=== PATIENT | female | born 1955 ===

== ENCOUNTER 2017-02-07 09:34 | Inpatient (IN) | payer BC ==
[2017-02-07 09:37] VITALS: BMI 32.1
[2017-02-07] MEDS ORDERED: Albuterol-Ipratrop 3 mg / 0.5 (3 ml) UD ONE ×2 (09:43→10:28)
[2017-02-07] MEDS ORDERED: Sodium Chloride 0.9% 500 ML IV ONE (10:09)
--- NOTE | 2017-02-07 10:17 | C.PDOC ---
History Of Present Illness 61 y/o female, past medical history of asthma, presents to emergency department with complaints of cough, chest tightness, and shortness of breath. Patient states she has never been admitted for asthma. She reports using her nebulizer at home w/o relief. Patient also notes she is a regular smoker but has not smoked for 1 week because she has not been feeling well. Otherwise, denies fever , chills, nausea, vomiting, headache, neck pain. Time Seen by Provider: 02/07/17 09:59 Chief Complaint (Nursing): Shortness Of Breath History Per: Patient History/Exam Limitations: no limitations Onset/Duration Of Symptoms: Days Current Symptoms Are (Timing): Still Present Current Respiratory Medications: See Home Med List Associated Symptoms: denies: Fever, Chills, Chest Pain, Dizziness, Anxiety Recent travel outside of the [place]: No Past Medical History Reviewed: Historical Data, Nursing Documentation, Vital Signs Vital Signs: Last Vital Signs Temp 99.7 F H 02/07/17 09:37 Pulse 83 02/07/17 09:37 Resp 20 02/07/17 09:50 BP 134/86 02/07/17 09:37 Pulse Ox 97 02/07/17 10:39 - Medical History PMH: Arthritis (right hip/back), Asthma, CAD, Depression, Emphysema, Fractures ( toes fx 2015), HTN, Hypercholesterolemia, Pneumonia Surgical History: Coronary Stent (x4) Family History: States: Unknown Family Hx - Social History Hx Alcohol Use: No Hx Substance Use: No (alcohol abuse) - Immunization History Hx Influenza Vaccination: Yes Review Of Systems Except As Marked, All Systems Reviewed And Found Negative. Constitutional: Negative for: Fever, Chills Cardiovascular: Negative for: Chest Pain Respiratory: Positive for: Cough, Shortness of Breath, Wheezing Gastrointestinal: Negative for: Nausea, Vomiting, Abdominal Pain Skin: Negative for: Rash Neurological: Negative for: Headache, Dizziness Physical Exam - Physical Exam Appears: Non-toxic, No Acute Distress Skin: Warm, Dry, No Rash Head: Atraumatic, Normacephalic Eye(s): bilateral: Normal Inspection, PERRL, EOMI Oral Mucosa: Moist Chest: Symmetrical Cardiovascular: Rhythm Regular Respiratory: No Accessory Muscle Use, Rhonchi, Wheezing (minimal) Gastrointestinal/Abdominal: Soft, No Tenderness, No Guarding, No Rebound, Other (obese) Back: Normal Inspection Extremity: Normal ROM, Capillary Refill (< 2 sec.) Neurological/Psych: Oriented x3, Normal Speech, Normal Cognition ED Course And Treatment - Laboratory Results Result Diagrams: 02/07/17 10:42 02/07/17 10:42 ECG: Interpreted By Me, Viewed By Me ECG Rhythm: Sinus Rhythm ECG Interpretation: Normal Interpretation Of ECG: No ST/T wave changes. Rate From EC (BPM) O2 Sat by Pulse Oximetry: 97 (RA) Pulse Ox Interpretation: Normal - Radiology CXR: Interpreted by Me CXR Interpretation: Yes: No Acute Disease. No: Infiltrates Medical Decision Making Medical Decision Making: Plan: * Duonebs * Solumedrol * Reeval Progress Notes: Patient with persistent SOB, dropped O2 Sats to 90%. Spoke with Dr. Farrell, will hospitalize for further evaluation. Disposition Discussed With : Viktor Farrell Doctor Will See Patient In The: Hospital Counseled Patient/Family Regarding: Studies Performed, Diagnosis - Disposition Disposition: HOSPITALIZED Disposition Time: 13:50 Condition: GUARDED Forms: [employer] (Faroese) - POA Present On Arrival: None - Clinical Impression Clinical Impression: Dyspnea, Reactive airway disease - Scribe Statement The provider has reviewed the documentation as recorded by the Scribe Kleber Saldaña All medical record entries made by the Scribe were at my direction and personally dictated by me. I have reviewed the chart and agree that the record accurately reflects my personal performance of the history, physical exam, medical decision making, and the department course for this patient. I have also personally directed, reviewed, and agree with the discharge instructions and disposition. Decision To Admit - Pt Status Changed To: Hospital Disposition Of: Observation - . Bed Request Type: Telemetry Patient Diagnosis: Dyspnea, Reactive airway disease
--- NOTE | 2017-02-07 10:29 | RAD ---
HISTORY: SOB COMPARISON: None available. TECHNIQUE: Chest PA and lateral FINDINGS: Examination limited by habitus. LUNGS: No focal consolidation. Please note that chest x-ray has limited sensitivity for the detection of pulmonary masses. PLEURA: No significant pleural effusion identified. No definite pneumothorax . CARDIOVASCULAR: Heart size appears within normal limits. Atherosclerotic calcifications of the aorta. OSSEOUS STRUCTURES: Osseous demineralization. Degenerative changes. Kyphosis. VISUALIZED UPPER ABDOMEN: Unremarkable. OTHER FINDINGS: None. IMPRESSION: No focal consolidation, significant pleural effusion, or definite pneumothorax identified.
[2017-02-07] MEDS: Albuterol-Ipratrop 3 mg / 0.5 (3 ml) UD IH SCH ×2 (10:30→10:45)
[2017-02-07 10:45] LABS: BASO % 0.4 % (0.0-2.0); EOS # 0.1 K/uL (0.0-0.7); EOS % 1.1 % (0.0-4.0); HEMATOCRIT 35.2 % (34.0-47.0); LYMPH # 1.8 K/uL (1.0-4.3); LYMPH % 31.8 % (20.0-40.0); MEAN CORPUSCULAR HEMOGLOBIN 31.2 pg (27.0-31.0); MEAN CORPUSCULAR HGB CONC 33.9 g/dL (33.0-37.0); MEAN PLATELET VOLUME 9.1 fL (7.2-11.7); MONO # 0.4 K/uL (0.0-0.8); MONO % 8.1 % (0.0-10.0); NRBC % 0.1 % (0.0-2.0); RED CELL DISTRIBUTION WIDTH 14.1 % (11.5-14.5); WHITE BLOOD COUNT 5.5 K/uL (4.8-10.8)
[2017-02-07 10:53] LABS: CHLORIDE 100 mmol/L (98-107); SODIUM 139 mmol/L (132-148)
[2017-02-07 10:56] LABS: ALKALINE PHOSPHATASE 94 U/L (38-126); ALT/SGPT 32 U/L (9-52); AST/SGOT 31 U/L (14-36); BILIRUBIN,TOTAL 0.6 mg/dL (0.2-1.3); BLOOD UREA NITROGEN 12 mg/dL (7-17); CARBON DIOXIDE 24 mmol/L (22-30); GFR AFRICAN-AMERICAN > 60; GLUCOSE,RANDOM 115 mg/dL (65-105); TOTAL PROTEIN 7.4 g/dL (6.3-8.3)
[2017-02-07] MEDS: Azithromycin 500mg/250ML NS 500 MG/250 ML BAG IVPB SCH (18:51)
[2017-02-07] MEDS: Fluticasone-Salmeterol 250-50mcg Diskus INH SCH (19:39)
[2017-02-07] MEDS: Albuterol-Ipratrop 3 mg / 0.5 (3 ml) UD INH SCH (19:40)
[2017-02-07] MEDS: (Novolog) Insulin Aspart, Recombinant 100 u/ml 10 ml vial SC SCH (22:15)
[2017-02-07] MEDS: MethylPREDNISolone 40 mg Vial IVP SCH (22:15)
[2017-02-07] MEDS: (Lantus) Insulin Glargine, Recombinant SC SCH (22:16)
--- NOTE | 2017-02-07 22:20 | CP.PCM.HP ---
History of Present Illness - History of Present Illness History of Present Illness: CC: cough congestion, shortness of breath x 1 week HPI: 61 y/o female, past medical history significant of asthma, DM, HTN, Hyperlipidemia, presents to emergency department with complaints of cough, chest tightness, and shortness of breath since 1 week which did not improve on home therapy. Patient states she has never been admitted for asthma. She reports using her nebulizer at home w/o relief. Patient also notes she is a regular smoker but has not smoked for 1 week because she has not been feeling well. Otherwise, denies fever, chills, nausea, vomiting, headache, neck pain. She has cough associated with white sputum, body aches, anorexia, fatigue. She denies polyuria, polyphagia, polydipsia, she denies hematuria, pyuria. Review of Systems - Review of Systems Systems not reviewed;Unavailable: Acuity of Condition, Respiratory Distress - Constitutional Constitutional: Anorexia, Fatigue, Lethargy, Malaise. absent: As Per HPI, Chills, Daytime Sleepiness, Excessive Sweating, Fever, Frequent Falls, Headache , Increased Appetite, Night Sweats, Snoring, Sleep Apnea, Weight Gain, Weight Loss, Weakness, Other - EENT Eyes: absent: As Per HPI, Blind Spots, Blurred Vision, Change in Vision, Decreased Night Vision, Diplopia, Discharge, Dry Eye, Exophthalmos, Floaters, Irritation, Itchy Eyes, Loss of Peripheral Vision, Pain, Photophobia, Requires Corrective Lenses, Sees Flashes, Spots in Vision, Tunnel Vision, Other Visual Disturbances, Loss of Vision, Other Ears: absent: As Per HPI, Decreased Hearing, Ear Discharge, Ear Pain, Tinnitus, Abnormal Hearing, Disequilibrium, Dizziness, Other Nose/Mouth/Throat: absent: As Per HPI, Epistaxis, Nasal Congestion, Nasal Discharge, Nasal Obstruction, Nasal Trauma, Nose Pain, Post Nasal Drip, Sinus Pain, Sinus Pressure, Bleeding Gums, Change in Voice, Dental Pain, Dry Mouth, Dysphagia, Halitosis, Hoarsness, Lip Swelling, Mouth Lesions, Mouth Pain, Odynophagia, Sore Throat, Throat Swelling, Tongue Swelling, Facial Pain, Neck Pain, Neck Mass, Other - Cardiovascular Cardiovascular: Dyspnea - Respiratory Respiratory: Cough, Dyspnea, Wheezing, Excessive Mucous Production - Gastrointestinal Gastrointestinal: absent: As Per HPI, Abdominal Pain, Belching, Bloating, Change in Bowel Habits, Change in Stool Character, Coffee Ground Emesis, Constipation, Cramping, Diarrhea, Dyspepsia, Dysphagia, Early Satiety, Excessive Flatus, Fecal Incontinence, Heartburn, Hematemesis, Hematochezia, Loose Stools, Melena, Nausea, Odynophagia, Temesmus, Vomiting, Other - Genitourinary Genitourinary: absent: As Per HPI, Change in Urinary Stream, Difficulty Urinating, Dysuria, Flank Pain, Hematuria, Pyuria, Nocturia, Urinary Incontinence, Urinary Frequency, Urinary Hesitance, Urinary Urgency, Voiding Freq/Small Amts, Freq UTI, Hx Renal/Bladder Calculi, Hx /Renal Surgery, Bladder Distension, Other - Reproductive: Female Reproductive:Female: absent: As Per HPI, Amenorrhea, Amenorrhea/ Control, Currently Menstual, Cycle <21 Days, Cycle >35 Days, Cycle Variable, Menses 1-7 Days, Menses >/= 8 Days, Menses Variable, Cycle > 4 Weeks Between, No Menses for 6 Months, Heavy Menses, Light Menses, Normal Menses, Spotting Between Cycles , S/P Hysterectomy, Menopausal, Post Menopausal, Premenarche, Abnormal Vaginal Bleeding, Dysmenorrhea, Dyspareunia, Genital Lesions, Genital Pruritis, Pelvic Pain, Prolapse Symptoms, Sexual Dysfunction, Vaginal Discharge, Vaginal Dryness , Vaginal Odor, Vaginal Pruritis, Other Past Patient History - Infectious Disease Hx of Infectious Diseases: None - Tetanus Immunizations Tetanus Immunization: Unknown - Past Social History Smoking Status: Former Smoker - CARDIAC Hx Hypercholesterolemia: Yes Hx Hypertension: Yes - PULMONARY Hx Asthma: Yes Hx Emphysema: Yes Hx Pneumonia: No Hx Sleep Apnea: Yes (BiPaP at home) - NEUROLOGICAL Hx Alzheimer's Disease: No Hx Dementia: No Hx Migraine: No Hx Multiple Sclerosis: No Hx Parkinson's Disease: No Hx Seizures: No Hx Transient Ischemic Attacks (TIA): No - HEENT Hx HEENT Problems: No - RENAL Hx Chronic Kidney Disease: No Hx Kidney Stones: No - ENDOCRINE/METABOLIC Hx Diabetes Mellitus Type 2: Yes Hx Hyperthyroidism: No Hx Hypothyroidism: No - HEMATOLOGICAL/ONCOLOGICAL Hx Anemia: No Hx Human Immunodeficiency Virus (HIV): No Hx Sickle Cell Disease: No - INTEGUMENTARY Hx Dermatological Problems: No - MUSCULOSKELETAL/RHEUMATOLOGICAL Hx Arthritis: Yes (right hip/back) Hx Falls: Yes Hx Fractures: Yes (toes fx 2015) Hx Unsteady Gait: Yes - GASTROINTESTINAL Hx Crohn's Disease: No Hx Diarrhea: Yes Hx Diverticulitis: No Hx Gall Bladder Disease: No Hx Gastritis: No Hx Pancreatitis: No - GENITOURINARY/GYNECOLOGICAL Hx Sexually Transmitted Disorders: No - PSYCHIATRIC Hx Depression: Yes Hx Substance Use: No (alcohol abuse) - SURGICAL HISTORY Hx Coronary Stent: Yes (x4) - ANESTHESIA Hx Anesthesia: Yes Hx Anesthesia Reactions: No Hx Malignant Hyperthermia: No Meds Allergies/Adverse Reactions: Allergies Allergy/AdvReac Type Severity Reaction Status Date / Time codeine Allergy VOMITING Verified 02/07/17 09:37 Physical Exam - Constitutional Appears: No Acute Distress - Head Exam Head Exam: ATRAUMATIC, NORMAL INSPECTION, NORMOCEPHALIC - Eye Exam Eye Exam: EOMI, Normal appearance, PERRL Pupil Exam: NORMAL ACCOMODATION, PERRL - Respiratory Exam Respiratory Exam: Decreased Breath Sounds, Rales, Rhonchi - Cardiovascular Exam Cardiovascular Exam: REGULAR RHYTHM, +S1, +S2 - GI/Abdominal Exam GI & Abdominal Exam: Normal Bowel Sounds, Soft. absent: Tenderness - Back Exam Back exam: NORMAL INSPECTION - Neurological Exam Neurological exam: Alert, CN II-XII Intact, Normal Gait, Oriented x3, Reflexes Normal Results - Vital Signs Recent Vital Signs: Last Vital Signs Temp 98.3 F 02/07/17 16:15 Pulse 72 02/07/17 20:27 Resp 20 02/07/17 16:15 BP 127/79 02/07/17 18:52 Pulse Ox 93 L 02/07/17 16:15 - Labs Result Diagrams: 02/07/17 10:42 02/07/17 10:42 Labs: Laboratory Results - last 24 hr 02/07/17 02/07/17 02/07/17 10:07 10:09 10:42 WBC 5.5 RBC 3.83 Hgb 11.9 Hct 35.2 MCV 92.0 MCH 31.2 H MCHC 33.9 RDW 14.1 Plt Count 174 MPV 9.1 Neut % (Auto) 58.6 Lymph % (Auto) 31.8 [place] % (Auto) 8.1 Eos % (Auto) 1.1 Baso % (Auto) 0.4 Neut # 3.2 Lymph # 1.8 [place] # 0.4 Eos # 0.1 Baso # 0.0 Sodium Potassium Chloride Carbon Dioxide Anion Gap BUN Creatinine Est GFR ( Amer) Est GFR (Non-Af Amer) POC Glucose (mg/dL) 123 H Random Glucose Calcium Total Bilirubin AST ALT Alkaline Phosphatase Troponin I NT-Pro-B Natriuret Pep Total Protein Albumin Globulin Albumin/Globulin Ratio Influenza Typ A,B (EIA) Negative for flu a/b 02/07/17 02/07/17 02/07/17 10:42 12:54 16:40 WBC RBC Hgb Hct MCV MCH MCHC RDW Plt Count MPV Neut % (Auto) Lymph % (Auto) [place] % (Auto) Eos % (Auto) Baso % (Auto) Neut # Lymph # [place] # Eos # Baso # Sodium 139 Potassium 4.0 Chloride 100 Carbon Dioxide 24 Anion Gap 20 BUN 12 Creatinine 0.5 L Est GFR ( Amer) > 60 Est GFR (Non-Af Amer) > 60 POC Glucose (mg/dL) 152 H 343 H Random Glucose 115 H Calcium 8.0 L Total Bilirubin 0.6 AST 31 ALT 32 Alkaline Phosphatase 94 Troponin I < 0.0120 NT-Pro-B Natriuret Pep 67.6 Total Protein 7.4 Albumin 3.8 Globulin 3.6 Albumin/Globulin Ratio 1.0 Influenza Typ A,B (EIA) Assessment & Plan (1) Dyspnea Status: Acute (2) Asthma Status: Acute (3) CAD (coronary artery disease) Status: Acute (4) DM2 (diabetes mellitus, type 2) Status: Acute (5) HTN (hypertension) Status: Acute
[2017-02-08] MEDS: Albuterol-Ipratrop 3 mg / 0.5 (3 ml) UD INH SCH ×4 (01:50→19:53)
[2017-02-08] MEDS: MethylPREDNISolone 40 mg Vial IVP SCH ×3 (05:24→21:52)
[2017-02-08] MEDS: (Novolog) Insulin Aspart, Recombinant 100 u/ml 10 ml vial SC SCH ×4 (08:31→21:52)
[2017-02-08] MEDS: buPROPion 150 mg/24 Hours XL Tab PO SCH (09:25)
[2017-02-08] MEDS: Enoxaparin 40 mg Syringe SC SCH (09:25)
[2017-02-08] MEDS ORDERED: Influenza Vaccine 60 mcg/0.5 mL SYR (4YR UP) IM ONE (10:00)
[2017-02-08] MEDS: Fluticasone-Salmeterol 250-50mcg Diskus INH SCH ×2 (11:15→19:53)
[2017-02-08] MEDS: Azithromycin 500mg/250ML NS 500 MG/250 ML BAG IVPB SCH (19:07)
[2017-02-08] MEDS: (Lantus) Insulin Glargine, Recombinant SC SCH (21:52)
--- NOTE | 2017-02-08 22:55 | CP.PCM.PN ---
Subjective - Date & Time of Evaluation Date of Evaluation: 02/08/17 Time of Evaluation: 20:40 - Subjective Subjective: Pt seen and evalauted, is less short of breath, is coughing has dypnea with exertion, denies any chest pain Objective - Vital Signs/Intake and Output Vital Signs (last 24 hours): Temp Pulse Resp BP Pulse Ox 98.1 F 90 20 118/72 94 L 02/08/17 16:00 02/08/17 16:50 02/08/17 16:00 02/08/17 18:10 02/08/17 16:00 Intake and Output: 02/08/17 02/09/17 18:59 06:59 Intake Total 900 Balance 900 - Medications Medications: Current Medications Albuterol/Ipratropium (Duoneb 3 Mg/0.5 Mg (3 Ml) Ud) 3 ml INH RQ6 [facility] Last Admin: 02/08/17 19:53 Dose: 3 ml Amlodipine Besylate (Norvasc) 5 mg PO DAILY [facility] Last Admin: 02/08/17 09:24 Dose: 5 mg Aspirin (Aspirin Chewable) 81 mg PO DAILY [facility] Last Admin: 02/08/17 09:24 Dose: 81 mg Bupropion HCl (Wellbutrin Xl) 150 mg PO DAILY [facility] Last Admin: 02/08/17 09:25 Dose: 150 mg Carvedilol (Coreg) 12.5 mg PO BID [facility] Last Admin: 02/08/17 18:10 Dose: 12.5 mg Duloxetine HCl (Cymbalta) 60 mg PO DAILY [facility] Last Admin: 02/08/17 09:25 Dose: 60 mg Enoxaparin Sodium (Lovenox) 40 mg SC DAILY [facility] Last Admin: 02/08/17 09:25 Dose: 40 mg Gabapentin (Neurontin) 300 mg PO TID [facility] Last Admin: 02/08/17 18:09 Dose: 300 mg Hydroxyzine HCl (Atarax) 50 mg PO BID [facility] Last Admin: 02/08/17 18:09 Dose: 50 mg Azithromycin (Zithromax 500mg In Ns Addvantage) 500 mg in 250 mls @ 167 mls/hr IVPB Q24H [facility] Last Admin: 02/08/17 19:07 Dose: 167 mls/hr Insulin Aspart (Novolog) 0 unit SC ACHS [facility] PRN Reason: Protocol Last Admin: 02/08/17 21:52 Dose: Not Given Insulin Glargine (Lantus) 14 unit SC [facility] Last Admin: 02/08/17 21:52 Dose: 14 units Metformin HCl (Glucophage) 500 mg PO BID [facility] Last Admin: 02/08/17 18:09 Dose: 500 mg Methylprednisolone (Solu-Medrol) 40 mg IVP Q8 [facility] Last Admin: 02/08/17 21:52 Dose: 40 mg Montelukast Sodium (Singulair) 10 mg PO HS [facility] Last Admin: 02/08/17 21:52 Dose: 10 mg Pantoprazole Sodium (Protonix Inj) 40 mg IVP DAILY [facility] Last Admin: 02/08/17 09:24 Dose: 40 mg Fluticasone/Salmeterol (Advair Diskus 250/50) 1 puff INH RQ12 [facility] Last Admin: 02/08/17 19:53 Dose: 1 puff - Labs Labs: 02/07/17 10:42 02/07/17 10:42 - Constitutional Appears: No Acute Distress - Head Exam Head Exam: ATRAUMATIC, NORMAL INSPECTION, NORMOCEPHALIC - Eye Exam Eye Exam: EOMI, Normal appearance, PERRL Pupil Exam: NORMAL ACCOMODATION, PERRL - Respiratory Exam Respiratory Exam: Decreased Breath Sounds, Rales, Rhonchi - Cardiovascular Exam Cardiovascular Exam: REGULAR RHYTHM, +S1, +S2. absent: Murmur - GI/Abdominal Exam GI & Abdominal Exam: Soft, Normal Bowel Sounds. absent: Tenderness - Rectal Exam Rectal Exam: Deferred - Neurological Exam Neurological Exam: Alert, Awake, CN II-XII Intact, Normal Gait, Oriented x3 - Psychiatric Exam Psychiatric exam: Normal Affect, Normal Mood Assessment and Plan (1) Dyspnea Status: Acute (2) Asthma Status: Acute (3) CAD (coronary artery disease) Status: Acute (4) DM2 (diabetes mellitus, type 2) Status: Acute (5) HTN (hypertension) Status: Acute
[2017-02-09] MEDS: Albuterol-Ipratrop 3 mg / 0.5 (3 ml) UD INH SCH ×4 (02:09→19:12)
[2017-02-09] MEDS: MethylPREDNISolone 40 mg Vial IVP SCH ×3 (05:23→21:01)
[2017-02-09 07:31] LABS: BASO % 0.1 % (0.0-2.0); MONO # 0.3 K/uL (0.0-0.8)
[2017-02-09 07:36] LABS: HEMATOCRIT 31.1 % (34.0-47.0); LYMPH # 0.8 K/uL (1.0-4.3); LYMPH % 8.2 % (20.0-40.0); MEAN CELL VOLUME 91.9 fL (81.0-99.0); MEAN CORPUSCULAR HGB CONC 33.7 g/dL (33.0-37.0); MEAN PLATELET VOLUME 10.2 fL (7.2-11.7); MONO % 3.3 % (0.0-10.0); PLATELET COUNT 179 K/uL (130-400); RED CELL DISTRIBUTION WIDTH 14.2 % (11.5-14.5); WHITE BLOOD COUNT 10.2 K/uL (4.8-10.8)
[2017-02-09 08:07] LABS: CHLORIDE 101 mmol/L (98-107)
[2017-02-09 08:08] LABS: SODIUM 136 mmol/L (132-148)
[2017-02-09 08:10] LABS: GFR AFRICAN-AMERICAN > 60
[2017-02-09 08:11] LABS: BLOOD UREA NITROGEN 24 mg/dL (7-17); CALCIUM 8.7 mg/dl (8.6-10.4); CARBON DIOXIDE 26 mmol/L (22-30); GLUCOSE,RANDOM 278 mg/dL (65-105)
--- NOTE | 2017-02-09 08:31 | CP.PCM.PN ---
Subjective - Date & Time of Evaluation Date of Evaluation: 02/09/17 Time of Evaluation: 09:00 - Subjective Subjective: Pt seen and examined, she is coughing, wheezing Objective - Vital Signs/Intake and Output Vital Signs (last 24 hours): Temp Pulse Resp BP Pulse Ox 97.5 F L 58 L 20 139/76 96 02/09/17 08:00 02/09/17 08:00 02/09/17 08:00 02/09/17 08:00 02/09/17 08:00 Intake and Output: 02/09/17 02/09/17 06:59 18:59 Intake Total 120 Balance 120 - Medications Medications: Current Medications Albuterol/Ipratropium (Duoneb 3 Mg/0.5 Mg (3 Ml) Ud) 3 ml INH RQ6 [facility] Last Admin: 02/09/17 02:09 Dose: 3 ml Amlodipine Besylate (Norvasc) 5 mg PO DAILY [facility] Last Admin: 02/08/17 09:24 Dose: 5 mg Aspirin (Aspirin Chewable) 81 mg PO DAILY [facility] Last Admin: 02/08/17 09:24 Dose: 81 mg Bupropion HCl (Wellbutrin Xl) 150 mg PO DAILY [facility] Last Admin: 02/08/17 09:25 Dose: 150 mg Carvedilol (Coreg) 12.5 mg PO BID [facility] Last Admin: 02/08/17 18:10 Dose: 12.5 mg Duloxetine HCl (Cymbalta) 60 mg PO DAILY [facility] Last Admin: 02/08/17 09:25 Dose: 60 mg Enoxaparin Sodium (Lovenox) 40 mg SC DAILY [facility] Last Admin: 02/08/17 09:25 Dose: 40 mg Gabapentin (Neurontin) 300 mg PO TID [facility] Last Admin: 02/08/17 18:09 Dose: 300 mg Hydroxyzine HCl (Atarax) 50 mg PO BID [facility] Last Admin: 02/08/17 18:09 Dose: 50 mg Azithromycin (Zithromax 500mg In Ns Addvantage) 500 mg in 250 mls @ 167 mls/hr IVPB Q24H [facility] Last Admin: 02/08/17 19:07 Dose: 167 mls/hr Insulin Aspart (Novolog) 0 unit SC ACHS [facility] PRN Reason: Protocol Last Admin: 02/08/17 21:52 Dose: Not Given Insulin Glargine (Lantus) 14 unit SC HS [facility] Last Admin: 02/08/17 21:52 Dose: 14 units Metformin HCl (Glucophage) 500 mg PO BID [facility] Last Admin: 02/08/17 18:09 Dose: 500 mg Methylprednisolone (Solu-Medrol) 40 mg IVP Q8 [facility] Last Admin: 02/09/17 05:23 Dose: 40 mg Montelukast Sodium (Singulair) 10 mg PO HS [facility] Last Admin: 02/08/17 21:52 Dose: 10 mg Pantoprazole Sodium (Protonix Inj) 40 mg IVP DAILY [facility] Last Admin: 02/08/17 09:24 Dose: 40 mg Fluticasone/Salmeterol (Advair Diskus 250/50) 1 puff INH RQ12 [facility] Last Admin: 02/08/17 19:53 Dose: 1 puff - Labs Labs: 02/09/17 07:14 02/09/17 07:14 - Constitutional Appears: No Acute Distress - Head Exam Head Exam: ATRAUMATIC, NORMAL INSPECTION, NORMOCEPHALIC - Eye Exam Eye Exam: EOMI, Normal appearance, PERRL Pupil Exam: NORMAL ACCOMODATION, PERRL - Respiratory Exam Respiratory Exam: Decreased Breath Sounds, Wheezes - Cardiovascular Exam Cardiovascular Exam: REGULAR RHYTHM, +S1, +S2. absent: Murmur - GI/Abdominal Exam GI & Abdominal Exam: Soft, Normal Bowel Sounds. absent: Tenderness Assessment and Plan (1) Dyspnea Status: Acute (2) Asthma Assessment & Plan: room air ABG salumedrol nebulizer Status: Acute (3) CAD (coronary artery disease) Status: Acute (4) DM2 (diabetes mellitus, type 2) Status: Acute (5) HTN (hypertension) Status: Acute
[2017-02-09] MEDS: (Novolog) Insulin Aspart, Recombinant 100 u/ml 10 ml vial SC SCH ×4 (08:43→22:09)
[2017-02-09] MEDS: Fluticasone-Salmeterol 250-50mcg Diskus INH SCH ×2 (08:55→19:12)
[2017-02-09 09:19] LABS: NEUTROPHIL 86 % (50-75); TOTAL CELLS COUNTED 100
[2017-02-09] MEDS ORDERED: Azithromycin 500 MG in Sodium Chloride 0.9% 250 ML IVPB SCH ×2 (10:00→12:00)
[2017-02-09] MEDS: Enoxaparin 40 mg Syringe SC SCH (10:07)
[2017-02-09] MEDS: buPROPion 150 mg/24 Hours XL Tab PO SCH (10:07)
[2017-02-09 11:44] LABS: ABG ALLEN TEST A; ARTERIAL BLOOD HGB O2 SAT 95.6 % (95.0-98.0); CARBOXYHEMOGLOBIN 2.4 % (0.5-1.5); DRAW SITE RRA; HHB 1.1 % (0.0-5.0)
[2017-02-09] MEDS: guaiFENesin 200 mg/10 ml Syrup UD PO PRN (16:01)
[2017-02-09] MEDS: Azithromycin 500 MG in Sodium Chloride 0.9% 250 ML IVPB SCH (17:50)
[2017-02-09] MEDS: (Lantus) Insulin Glargine, Recombinant SC SCH (21:03)
[2017-02-10] MEDS: Albuterol-Ipratrop 3 mg / 0.5 (3 ml) UD INH SCH ×4 (01:42→19:58)
[2017-02-10] MEDS: Fluticasone-Salmeterol 250-50mcg Diskus INH SCH ×2 (07:30→19:58)
[2017-02-10] MEDS: (Novolog) Insulin Aspart, Recombinant 100 u/ml 10 ml vial SC SCH ×5 (08:55→21:47)
[2017-02-10] MEDS: guaiFENesin 200 mg/10 ml Syrup UD PO PRN (09:40)
[2017-02-10] MEDS: MethylPREDNISolone 40 mg Vial IVP SCH ×2 (09:40→21:45)
[2017-02-10] MEDS: Enoxaparin 40 mg Syringe SC SCH (09:41)
[2017-02-10] MEDS: buPROPion 150 mg/24 Hours XL Tab PO SCH (09:41)
[2017-02-10] MEDS: Azithromycin 500 MG in Sodium Chloride 0.9% 250 ML IVPB SCH (17:41)
[2017-02-10] MEDS: (Lantus) Insulin Glargine, Recombinant SC SCH (21:47)
[2017-02-11] MEDS: Albuterol-Ipratrop 3 mg / 0.5 (3 ml) UD INH SCH ×4 (02:34→19:29)
--- NOTE | 2017-02-11 02:55 | CP.PCM.PN ---
Subjective - Date & Time of Evaluation Date of Evaluation: 02/11/17 Time of Evaluation: 20:00 Objective - Vital Signs/Intake and Output Vital Signs (last 24 hours): Temp Pulse Resp BP Pulse Ox 98.0 F 90 20 130/71 94 L 02/11/17 00:00 02/11/17 00:00 02/11/17 00:00 02/11/17 00:00 02/11/17 00:00 Intake and Output: 02/10/17 02/11/17 18:59 06:59 Intake Total 480 850 Balance 480 850 - Medications Medications: Current Medications Albuterol/Ipratropium (Duoneb 3 Mg/0.5 Mg (3 Ml) Ud) 3 ml INH RQ6 [facility] Last Admin: 02/10/17 19:58 Dose: 3 ml Amlodipine Besylate (Norvasc) 5 mg PO DAILY [facility] Last Admin: 02/10/17 09:41 Dose: 5 mg Aspirin (Aspirin Chewable) 81 mg PO DAILY [facility] Last Admin: 02/10/17 09:40 Dose: 81 mg Bupropion HCl (Wellbutrin Xl) 150 mg PO DAILY [facility] Last Admin: 02/10/17 09:41 Dose: 150 mg Carvedilol (Coreg) 12.5 mg PO BID [facility] Last Admin: 02/10/17 18:09 Dose: 12.5 mg Duloxetine HCl (Cymbalta) 60 mg PO DAILY [facility] Last Admin: 02/10/17 09:41 Dose: 60 mg Enoxaparin Sodium (Lovenox) 40 mg SC DAILY [facility] Last Admin: 02/10/17 09:41 Dose: 40 mg Gabapentin (Neurontin) 300 mg PO TID [facility] Last Admin: 02/10/17 17:41 Dose: 300 mg Guaifenesin (Robitussin) 200 mg PO Q4H PRN PRN Reason: Cough and congestion Last Admin: 02/10/17 09:40 Dose: 200 mg Hydroxyzine HCl (Atarax) 50 mg PO BID [facility] Last Admin: 02/10/17 17:41 Dose: 50 mg Azithromycin 500 mg/ Sodium (Chloride) 250 mls @ 167 mls/hr IVPB Q24H [facility] Last Admin: 02/10/17 17:41 Dose: 167 mls/hr Insulin Aspart (Novolog) 0 unit SC ACHS [facility] PRN Reason: Protocol Last Admin: 02/10/17 21:47 Dose: 3 unit Insulin Glargine (Lantus) 14 unit SC HS [facility] Last Admin: 02/10/17 21:47 Dose: 14 units Metformin HCl (Glucophage) 500 mg PO BID [facility] Last Admin: 02/10/17 17:41 Dose: 500 mg Methylprednisolone (Solu-Medrol) 40 mg IVP Q12 [facility] Last Admin: 02/10/17 21:45 Dose: 40 mg Montelukast Sodium (Singulair) 10 mg PO HS [facility] Last Admin: 02/10/17 21:45 Dose: 10 mg Pantoprazole Sodium (Protonix Inj) 40 mg IVP DAILY [facility] Last Admin: 02/10/17 09:40 Dose: 40 mg Fluticasone/Salmeterol (Advair Diskus 250/50) 1 puff INH RQ12 [facility] Last Admin: 02/10/17 19:58 Dose: 1 puff - Labs Labs: 02/09/17 07:14 02/09/17 07:14 Assessment and Plan (1) Dyspnea Status: Acute (2) Asthma Status: Acute (3) CAD (coronary artery disease) Status: Acute (4) DM2 (diabetes mellitus, type 2) Status: Acute (5) HTN (hypertension) Status: Acute
--- NOTE | 2017-02-11 02:55 | CP.PCM.PN ---
Subjective - Date & Time of Evaluation Date of Evaluation: 02/10/17 Time of Evaluation: 19:30 - Subjective Subjective: Pt was evalauted at bedside, less cough, less short of breath, continue of current treatment Objective - Vital Signs/Intake and Output Vital Signs (last 24 hours): Temp Pulse Resp BP Pulse Ox 98.0 F 90 20 130/71 94 L 02/11/17 00:00 02/11/17 00:00 02/11/17 00:00 02/11/17 00:00 02/11/17 00:00 Intake and Output: 02/10/17 02/11/17 18:59 06:59 Intake Total 480 850 Balance 480 850 - Medications Medications: Current Medications Albuterol/Ipratropium (Duoneb 3 Mg/0.5 Mg (3 Ml) Ud) 3 ml INH RQ6 [facility] Last Admin: 02/10/17 19:58 Dose: 3 ml Amlodipine Besylate (Norvasc) 5 mg PO DAILY [facility] Last Admin: 02/10/17 09:41 Dose: 5 mg Aspirin (Aspirin Chewable) 81 mg PO DAILY [facility] Last Admin: 02/10/17 09:40 Dose: 81 mg Bupropion HCl (Wellbutrin Xl) 150 mg PO DAILY [facility] Last Admin: 02/10/17 09:41 Dose: 150 mg Carvedilol (Coreg) 12.5 mg PO BID [facility] Last Admin: 02/10/17 18:09 Dose: 12.5 mg Duloxetine HCl (Cymbalta) 60 mg PO DAILY [facility] Last Admin: 02/10/17 09:41 Dose: 60 mg Enoxaparin Sodium (Lovenox) 40 mg SC DAILY [facility] Last Admin: 02/10/17 09:41 Dose: 40 mg Gabapentin (Neurontin) 300 mg PO TID [facility] Last Admin: 02/10/17 17:41 Dose: 300 mg Guaifenesin (Robitussin) 200 mg PO Q4H PRN PRN Reason: Cough and congestion Last Admin: 02/10/17 09:40 Dose: 200 mg Hydroxyzine HCl (Atarax) 50 mg PO BID [facility] Last Admin: 02/10/17 17:41 Dose: 50 mg Azithromycin 500 mg/ Sodium (Chloride) 250 mls @ 167 mls/hr IVPB Q24H [facility] Last Admin: 02/10/17 17:41 Dose: 167 mls/hr Insulin Aspart (Novolog) 0 unit SC ACHS [facility] PRN Reason: Protocol Last Admin: 02/10/17 21:47 Dose: 3 unit Insulin Glargine (Lantus) 14 unit SC HS [facility] Last Admin: 02/10/17 21:47 Dose: 14 units Metformin HCl (Glucophage) 500 mg PO BID [facility] Last Admin: 02/10/17 17:41 Dose: 500 mg Methylprednisolone (Solu-Medrol) 40 mg IVP Q12 [facility] Last Admin: 02/10/17 21:45 Dose: 40 mg Montelukast Sodium (Singulair) 10 mg PO HS [facility] Last Admin: 02/10/17 21:45 Dose: 10 mg Pantoprazole Sodium (Protonix Inj) 40 mg IVP DAILY [facility] Last Admin: 02/10/17 09:40 Dose: 40 mg Fluticasone/Salmeterol (Advair Diskus 250/50) 1 puff INH RQ12 [facility] Last Admin: 02/10/17 19:58 Dose: 1 puff - Labs Labs: 02/09/17 07:14 02/09/17 07:14 - Constitutional Appears: No Acute Distress - Head Exam Head Exam: ATRAUMATIC, NORMAL INSPECTION, NORMOCEPHALIC - Eye Exam Eye Exam: EOMI, Normal appearance, PERRL Pupil Exam: NORMAL ACCOMODATION, PERRL - Respiratory Exam Respiratory Exam: Decreased Breath Sounds, Rhonchi, Wheezes - Cardiovascular Exam Cardiovascular Exam: REGULAR RHYTHM, +S1, +S2. absent: Murmur - GI/Abdominal Exam GI & Abdominal Exam: Soft, Normal Bowel Sounds. absent: Tenderness Assessment and Plan (1) Dyspnea Status: Acute (2) Asthma Assessment & Plan: room air ABG nebulizer PRN Status: Acute (3) CAD (coronary artery disease) Status: Acute (4) DM2 (diabetes mellitus, type 2) Status: Acute (5) HTN (hypertension) Status: Acute
[2017-02-11] MEDS: Fluticasone-Salmeterol 250-50mcg Diskus INH SCH ×2 (07:25→19:29)
[2017-02-11] MEDS: (Novolog) Insulin Aspart, Recombinant 100 u/ml 10 ml vial SC SCH ×4 (07:55→21:45)
[2017-02-11] MEDS: MethylPREDNISolone 40 mg Vial IVP SCH ×2 (09:37→21:48)
[2017-02-11] MEDS: Enoxaparin 40 mg Syringe SC SCH (09:37)
[2017-02-11] MEDS: buPROPion 150 mg/24 Hours XL Tab PO SCH (09:37)
[2017-02-11] MEDS: Azithromycin 500 MG in Sodium Chloride 0.9% 250 ML IVPB SCH (18:30)
[2017-02-11] MEDS: (Lantus) Insulin Glargine, Recombinant SC SCH (21:49)
[2017-02-12] MEDS: Albuterol-Ipratrop 3 mg / 0.5 (3 ml) UD INH SCH ×4 (01:44→19:44)
--- NOTE | 2017-02-12 06:38 | CARD ---
APPROVED REPORT EKG Measurement Heart [id number] <Conclusion> Normal sinus rhythm Normal ECG
[2017-02-12] MEDS: Fluticasone-Salmeterol 250-50mcg Diskus INH SCH ×2 (07:26→19:45)
[2017-02-12] MEDS: (Novolog) Insulin Aspart, Recombinant 100 u/ml 10 ml vial SC SCH ×4 (09:12→21:58)
[2017-02-12] MEDS ORDERED: Influenza Vaccine 60 mcg/0.5 mL SYR (4YR UP) IM ONE ×2 (09:30→10:00)
[2017-02-12] MEDS: MethylPREDNISolone 40 mg Vial IVP SCH ×2 (10:26→21:58)
[2017-02-12] MEDS: buPROPion 150 mg/24 Hours XL Tab PO SCH (10:26)
[2017-02-12] MEDS: Enoxaparin 40 mg Syringe SC SCH (10:29)
[2017-02-12 13:05] LABS: ABG ALLEN TEST POS; ARTERIAL BLOOD HGB O2 SAT 80.1 % (95.0-98.0); CARBOXYHEMOGLOBIN 2.3 % (0.5-1.5); DRAW SITE RRA; HHB 15.7 % (0.0-5.0); METHEMOGLOBIN 1.9 % (0.0-3.0)
[2017-02-12] MEDS ORDERED: Iodixanol 320 MG/ML 200 ML BOTTLE IV ONE (14:20)
--- NOTE | 2017-02-12 16:05 | CT ---
PROCEDURE: CT Chest with contrast (Pulmonary Angiogram) HISTORY: r/o PE COMPARISON: None available. TECHNIQUE: Axial computed tomography images were obtained of the chest in the pulmonary arterial phase of enhancement. Coronal and sagittal reformatted images were created and reviewed. Intravenous contrast dose: 100 mL of Visipaque 320 Radiation dose: Total exam DLP = go 477.98 mGy-cm. This CT exam was performed using one or more of the following dose reduction techniques: Automated exposure control, adjustment of the mA and/or kV according to patient size, and/or use of iterative reconstruction technique. FINDINGS: PULMONARY ARTERIES: Unremarkable. No pulmonary embolism. AORTA: No acute findings. No thoracic aortic aneurysm. LUNGS: There are large foci of ground-glass opacity associated with thick septation in the lungs bilaterally more prominent in the upper lobes. Findings are nonspecific and the differential diagnosis includes pneumonitis, small airway disease or small vessels disease, acute interstitial pneumonia, pulmonary alveolar proteinosis and less likely drug induced pneumonitis and pulmonary hemorrhage. PLEURAL SPACES: Unremarkable. No effusion or pneuomothorax. HEART: Unremarkable. No cardiomegaly. No significant pericardial effusion. LYMPH NODES: Slightly prominent P prevascular and precarinal lymph nodes. BONES, CHEST WALL: Unremarkable. No fracture or destructive lesion OTHER FINDINGS: Postsurgical changes in the upper abdomen suggestive of prior bariatric surgery likely gastric bypass. IMPRESSION: No evidence of pulmonary embolus. Patchy foci of ground-glass opacities associated with interlobular septal thickening, ( crazy paving appearance ). The differential consideration includes pneumonitis, small airway disease, small vessels disease, acute interstitial pneumonia, pulmonary alveolar proteinosis and less likely drug induced pneumonitis and pulmonary hemorrhage.
[2017-02-12 17:46] LABS: BASO % 0.1 % (0.0-2.0); LYMPH # 0.9 K/uL (1.0-4.3); LYMPH % 8.4 % (20.0-40.0); MEAN CELL VOLUME 90.8 fL (81.0-99.0); MEAN CORPUSCULAR HEMOGLOBIN 30.1 pg (27.0-31.0); MEAN CORPUSCULAR HGB CONC 33.2 g/dL (33.0-37.0); MEAN PLATELET VOLUME 9.2 fL (7.2-11.7); MONO # 0.3 K/uL (0.0-0.8); MONO % 3.3 % (0.0-10.0); PLATELET COUNT 287 K/uL (130-400); RED CELL DISTRIBUTION WIDTH 13.9 % (11.5-14.5); WHITE BLOOD COUNT 10.4 K/uL (4.8-10.8)
[2017-02-12] MEDS: Sulfamethoxazole/Trimethoprim 200 MG in Dextrose 5% In Water 250 ML IVPB SCH (18:10)
[2017-02-12 18:11] LABS: NEUTROPHIL 85 % (50-75); TOTAL CELLS COUNTED 100
[2017-02-12 18:12] LABS: LARGE PLATELETS PRESENT
[2017-02-12 18:46] LABS: ERYTHROCYTE SEDIMENTATION RATE 78 mm/hr (0-20)
[2017-02-12] MEDS: Acetylcysteine 20% Inhal Soln (4ml) INH SCH (19:44)
--- NOTE | 2017-02-12 19:51 | CP.PCM.CON ---
Past Patient History - Infectious Disease Hx of Infectious Diseases: None - Tetanus Immunizations Tetanus Immunization: Unknown - Past Social History Smoking Status: Former Smoker - CARDIAC Hx Cardiac Disorders: Yes (CAD) Hx Hypercholesterolemia: Yes Hx Hypertension: Yes - PULMONARY Hx Chronic Obstructive Pulmonary Disease (COPD): Yes (Emphysema) - NEUROLOGICAL Hx Alzheimer's Disease: No Hx Dementia: No Hx Migraine: No Hx Multiple Sclerosis: No Hx Parkinson's Disease: No Hx Seizures: No Hx Transient Ischemic Attacks (TIA): No - HEENT Hx HEENT Problems: No - RENAL Hx Chronic Kidney Disease: No Hx Kidney Stones: No - ENDOCRINE/METABOLIC Hx Diabetes Mellitus Type 2: Yes Hx Hypothyroidism: No - HEMATOLOGICAL/ONCOLOGICAL Hx Anemia: No Hx Human Immunodeficiency Virus (HIV): No Hx Sickle Cell Disease: No - INTEGUMENTARY Hx Dermatological Problems: No - MUSCULOSKELETAL/RHEUMATOLOGICAL Hx Arthritis: Yes (right hip/back) - GASTROINTESTINAL Hx Crohn's Disease: No Hx Diarrhea: Yes Hx Diverticulitis: No Hx Gall Bladder Disease: No Hx Gastritis: No Hx Pancreatitis: No - GENITOURINARY/GYNECOLOGICAL Hx Sexually Transmitted Disorders: No - PSYCHIATRIC Hx Depression: Yes Hx Substance Use: No (alcohol abuse) - SURGICAL HISTORY Hx Coronary Stent: Yes (x4) - ANESTHESIA Hx Anesthesia: Yes Hx Anesthesia Reactions: No Hx Malignant Hyperthermia: No Meds Home Medications: Home Medication List Medication Instructions Recorded Confirmed Type guaiFENesin [Robitussin] 200 mg PO Q4H PRN #8 oz 02/11/17 Rx predniSONE [predniSONE Tab] 20 mg PO DAILY 12 Days tab 02/11/17 Rx Allergies/Adverse Reactions: Allergies Allergy/AdvReac Type Severity Reaction Status Date / Time codeine Allergy VOMITING Verified 02/07/17 09:37 - Medications Medications: Current Medications Acetylcysteine (Acetylcysteine 20%) 4 ml INH RQ6 [facility] Last Admin: 02/12/17 19:44 Dose: 4 ml Albuterol/Ipratropium (Duoneb 3 Mg/0.5 Mg (3 Ml) Ud) 3 ml INH RQ6 [facility] Last Admin: 02/12/17 19:44 Dose: 3 ml Amlodipine Besylate (Norvasc) 5 mg PO DAILY [facility] Last Admin: 02/12/17 10:26 Dose: 5 mg Aspirin (Aspirin Chewable) 81 mg PO DAILY [facility] Last Admin: 02/12/17 10:26 Dose: 81 mg Bupropion HCl (Wellbutrin Xl) 150 mg PO DAILY [facility] Last Admin: 02/12/17 10:26 Dose: 150 mg Carvedilol (Coreg) 12.5 mg PO BID [facility] Last Admin: 02/12/17 18:17 Dose: 12.5 mg Duloxetine HCl (Cymbalta) 60 mg PO DAILY [facility] Last Admin: 02/12/17 10:29 Dose: 60 mg Enoxaparin Sodium (Lovenox) 40 mg SC DAILY [facility] Last Admin: 02/12/17 10:29 Dose: 40 mg Gabapentin (Neurontin) 300 mg PO TID [facility] Last Admin: 02/12/17 18:10 Dose: 300 mg Guaifenesin (Robitussin) 200 mg PO Q4H PRN PRN Reason: Cough and congestion Last Admin: 02/10/17 09:40 Dose: 200 mg Hydroxyzine HCl (Atarax) 50 mg PO BID [facility] Last Admin: 02/12/17 18:10 Dose: 50 mg Azithromycin 500 mg/ Sodium (Chloride) 250 mls @ 167 mls/hr IVPB Q24H [facility] Last Admin: 02/11/17 18:30 Dose: 167 mls/hr Trimethoprim/Sulfamethoxazole (200 mg/ Dextrose) 250 mls @ 166.667 mls/hr IVPB Q12H [facility] Last Admin: 02/12/17 18:10 Dose: 166.667 mls/hr Insulin Aspart (Novolog) 0 unit SC ACHS [facility] PRN Reason: Protocol Last Admin: 02/12/17 17:31 Dose: Not Given Insulin Glargine (Lantus) 14 unit SC [facility] Last Admin: 02/11/17 21:49 Dose: 14 units Methylprednisolone (Solu-Medrol) 40 mg IVP Q8 [facility] Montelukast Sodium (Singulair) 10 mg PO [facility] Last Admin: 02/11/17 21:48 Dose: 10 mg Pantoprazole Sodium (Protonix Inj) 40 mg IVP DAILY [facility] Last Admin: 02/12/17 10:26 Dose: 40 mg Fluticasone/Salmeterol (Advair Diskus 250/50) 1 puff INH RQ12 [facility] Last Admin: 02/12/17 19:45 Dose: 1 puff Results - Vital Signs Recent Vital Signs: Last Vital Signs Temp 98 F 02/12/17 15:12 Pulse 64 02/12/17 15:12 Resp 20 02/12/17 15:12 BP 144/78 02/12/17 18:17 Pulse Ox 94 L 02/12/17 15:12 - Labs Result Diagrams: 02/12/17 16:40 02/09/17 07:14 Labs: Laboratory Results - last 24 hr 02/11/17 02/12/17 02/12/17 21:18 12:58 16:40 WBC 10.4 RBC 3.63 L Hgb 10.9 L Hct 33.0 L MCV 90.8 MCH 30.1 MCHC 33.2 RDW 13.9 Plt Count 287 D MPV 9.2 Neut % (Auto) 88.2 H Lymph % (Auto) 8.4 L [place] % (Auto) 3.3 Eos % (Auto) 0.0 Baso % (Auto) 0.1 Neut # 9.2 H Lymph # 0.9 L [place] # 0.3 Eos # 0.0 Baso # 0.0 Neutrophils % (Manual) 85 H Lymphocytes % (Manual) 9 L Monocytes % (Manual) 6 Platelet Estimate Normal Large Platelets Present Polychromasia Slight Hypochromasia (manual) Slight Basophilic Stippling Slight Anisocytosis (manual) Slight ESR 78 H Puncture Site Rra pCO2 38 pO2 43 L* HCO3 27.0 ABG pH 7.46 H ABG Total CO2 28.2 H ABG O2 Saturation 83.6 L ABG Base Excess 3.1 H ABG Hemoglobin 11.5 L ABG Carboxyhemoglobin 2.3 H POC ABG HHb (Measured) 15.7 H ABG Methemoglobin 1.9 Jacob Test Pos A-a O2 Difference 59.0 Respiratory Index 1.4 Hgb O2 Saturation 80.1 L FiO2 21.0 Crit Value Called To Jacky patel Crit Value Called By Robe noble Crit Value Read Back Y Blood Gas Notified Time 1304 POC Glucose (mg/dL) 241 H Lactate Dehydrogenase C-React Prot High Sens 02/12/17 02/12/17 16:40 16:40 WBC RBC Hgb Hct MCV MCH MCHC RDW Plt Count MPV Neut % (Auto) Lymph % (Auto) [place] % (Auto) Eos % (Auto) Baso % (Auto) Neut # Lymph # [place] # Eos # Baso # Neutrophils % (Manual) Lymphocytes % (Manual) Monocytes % (Manual) Platelet Estimate Large Platelets Polychromasia Hypochromasia (manual) Basophilic Stippling Anisocytosis (manual) ESR Puncture Site pCO2 pO2 HCO3 ABG pH ABG Total CO2 ABG O2 Saturation ABG Base Excess ABG Hemoglobin ABG Carboxyhemoglobin POC ABG HHb (Measured) ABG Methemoglobin Jacob Test A-a O2 Difference Respiratory Index Hgb O2 Saturation FiO2 Crit Value Called To Crit Value Called By Crit Value Read Back Blood Gas Notified Time POC Glucose (mg/dL) Lactate Dehydrogenase 980 H C-React Prot High Sens > 15.00 H
[2017-02-12] MEDS: Azithromycin 500 MG in Sodium Chloride 0.9% 250 ML IVPB SCH (20:12)
[2017-02-12 21:24] LABS: CHLORIDE 96 mmol/L (98-107); POTASSIUM 4.2 mmol/L (3.6-5.2); SODIUM 131 mmol/L (132-148)
[2017-02-12 21:26] LABS: GFR AFRICAN-AMERICAN > 60
[2017-02-12 21:27] LABS: ALKALINE PHOSPHATASE 87 U/L (38-126); ALT/SGPT 45 U/L (9-52); AST/SGOT 22 U/L (14-36); BILIRUBIN,TOTAL 0.6 mg/dL (0.2-1.3); BLOOD UREA NITROGEN 18 mg/dL (7-17); CARBON DIOXIDE 25 mmol/L (22-30); GLUCOSE,RANDOM 292 mg/dL (65-105); TOTAL PROTEIN 6.2 g/dL (6.3-8.3)
[2017-02-12 21:28] LABS: CALCIUM 7.9 mg/dl (8.6-10.4)
[2017-02-12] MEDS: (Lantus) Insulin Glargine, Recombinant SC SCH (21:58)
--- NOTE | 2017-02-12 23:14 | CP.PCM.PN ---
Subjective - Date & Time of Evaluation Date of Evaluation: 02/12/17 Time of Evaluation: 09:35 Objective - Vital Signs/Intake and Output Vital Signs (last 24 hours): Temp Pulse Resp BP Pulse Ox 98 F 64 20 119/74 94 L 02/12/17 15:12 02/12/17 15:12 02/12/17 15:12 02/12/17 21:55 02/12/17 15:12 - Medications Medications: Current Medications Acetylcysteine (Acetylcysteine 20%) 4 ml INH RQ6 [facility] Last Admin: 02/12/17 19:44 Dose: 4 ml Albuterol/Ipratropium (Duoneb 3 Mg/0.5 Mg (3 Ml) Ud) 3 ml INH RQ6 [facility] Last Admin: 02/12/17 19:44 Dose: 3 ml Amlodipine Besylate (Norvasc) 5 mg PO DAILY [facility] Last Admin: 02/12/17 10:26 Dose: 5 mg Aspirin (Aspirin Chewable) 81 mg PO DAILY [facility] Last Admin: 02/12/17 10:26 Dose: 81 mg Bupropion HCl (Wellbutrin Xl) 150 mg PO DAILY [facility] Last Admin: 02/12/17 10:26 Dose: 150 mg Carvedilol (Coreg) 12.5 mg PO BID [facility] Last Admin: 02/12/17 18:17 Dose: 12.5 mg Duloxetine HCl (Cymbalta) 60 mg PO DAILY [facility] Last Admin: 02/12/17 10:29 Dose: 60 mg Enoxaparin Sodium (Lovenox) 40 mg SC DAILY [facility] Last Admin: 02/12/17 10:29 Dose: 40 mg Gabapentin (Neurontin) 300 mg PO TID [facility] Last Admin: 02/12/17 18:10 Dose: 300 mg Guaifenesin (Robitussin) 200 mg PO Q4H PRN PRN Reason: Cough and congestion Last Admin: 02/10/17 09:40 Dose: 200 mg Hydroxyzine HCl (Atarax) 50 mg PO BID [facility] Last Admin: 02/12/17 18:10 Dose: 50 mg Azithromycin 500 mg/ Sodium (Chloride) 250 mls @ 167 mls/hr IVPB Q24H [facility] Last Admin: 02/12/17 20:12 Dose: 167 mls/hr Trimethoprim/Sulfamethoxazole (200 mg/ Dextrose) 250 mls @ 166.667 mls/hr IVPB Q12H [facility] Last Admin: 02/12/17 18:10 Dose: 166.667 mls/hr Insulin Aspart (Novolog) 0 unit SC ACHS [facility] PRN Reason: Protocol Last Admin: 02/12/17 21:58 Dose: 2 unit Insulin Glargine (Lantus) 14 unit SC HS [facility] Last Admin: 02/12/17 21:58 Dose: 14 units Methylprednisolone (Solu-Medrol) 40 mg IVP Q8 [facility] Last Admin: 02/12/17 21:58 Dose: 40 mg Montelukast Sodium (Singulair) 10 mg PO HS [facility] Last Admin: 02/12/17 21:58 Dose: 10 mg Pantoprazole Sodium (Protonix Inj) 40 mg IVP DAILY [facility] Last Admin: 02/12/17 10:26 Dose: 40 mg Fluticasone/Salmeterol (Advair Diskus 250/50) 1 puff INH RQ12 [facility] Last Admin: 02/12/17 19:45 Dose: 1 puff - Labs Labs: 02/12/17 16:40 02/12/17 20:35 Assessment and Plan (1) Dyspnea Status: Acute (2) Asthma Status: Acute (3) CAD (coronary artery disease) Status: Acute (4) DM2 (diabetes mellitus, type 2) Status: Acute (5) HTN (hypertension) Status: Acute
[2017-02-13] MEDS: Albuterol-Ipratrop 3 mg / 0.5 (3 ml) UD INH SCH ×4 (01:14→20:20)
[2017-02-13] MEDS: MethylPREDNISolone 40 mg Vial IVP SCH ×3 (05:31→21:43)
[2017-02-13] MEDS: Sulfamethoxazole/Trimethoprim 200 MG in Dextrose 5% In Water 250 ML IVPB SCH ×2 (05:31→17:00)
[2017-02-13 08:21] VITALS: RESP 20
[2017-02-13] MEDS: Fluticasone-Salmeterol 250-50mcg Diskus INH SCH ×2 (08:48→20:20)
[2017-02-13] MEDS: Acetylcysteine 20% Inhal Soln (4ml) INH SCH ×3 (08:50→20:21)
[2017-02-13] MEDS: (Novolog) Insulin Aspart, Recombinant 100 u/ml 10 ml vial SC SCH ×4 (09:52→21:43)
[2017-02-13] MEDS: Enoxaparin 40 mg Syringe SC SCH (09:53)
[2017-02-13] MEDS: buPROPion 150 mg/24 Hours XL Tab PO SCH (09:53)
[2017-02-13] MEDS ORDERED: (Lantus) Insulin Glargine, Recombinant SC SCH (17:22)
[2017-02-13] MEDS: Azithromycin 500 MG in Sodium Chloride 0.9% 250 ML IVPB SCH (19:58)
--- NOTE | 2017-02-13 22:54 | CP.PCM.PN ---
Subjective - Date & Time of Evaluation Date of Evaluation: 02/13/17 Time of Evaluation: 21:00 Objective - Vital Signs/Intake and Output Vital Signs (last 24 hours): Temp Pulse Resp BP Pulse Ox 98 F 73 20 124/72 97 02/13/17 15:09 02/13/17 15:09 02/13/17 15:09 02/13/17 18:11 02/13/17 15:09 Intake and Output: 02/13/17 02/14/17 18:59 06:59 Intake Total 900 Balance 900 - Medications Medications: Current Medications Acetylcysteine (Acetylcysteine 20%) 4 ml INH RQ6 [facility] Last Admin: 02/13/17 20:21 Dose: 4 ml Albuterol/Ipratropium (Duoneb 3 Mg/0.5 Mg (3 Ml) Ud) 3 ml INH RQ6 [facility] Last Admin: 02/13/17 20:20 Dose: 3 ml Amlodipine Besylate (Norvasc) 5 mg PO DAILY [facility] Last Admin: 02/13/17 09:54 Dose: 5 mg Aspirin (Aspirin Chewable) 81 mg PO DAILY [facility] Last Admin: 02/13/17 09:53 Dose: 81 mg Bupropion HCl (Wellbutrin Xl) 150 mg PO DAILY [facility] Last Admin: 02/13/17 09:53 Dose: 150 mg Carvedilol (Coreg) 12.5 mg PO BID [facility] Last Admin: 02/13/17 18:11 Dose: 12.5 mg Duloxetine HCl (Cymbalta) 60 mg PO DAILY [facility] Last Admin: 02/13/17 09:53 Dose: 60 mg Enoxaparin Sodium (Lovenox) 40 mg SC DAILY [facility] Last Admin: 02/13/17 09:53 Dose: 40 mg Gabapentin (Neurontin) 300 mg PO TID [facility] Last Admin: 02/13/17 18:10 Dose: 300 mg Guaifenesin (Robitussin) 200 mg PO Q4H PRN PRN Reason: Cough and congestion Last Admin: 02/10/17 09:40 Dose: 200 mg Hydroxyzine HCl (Atarax) 50 mg PO BID [facility] Last Admin: 02/13/17 18:10 Dose: 50 mg Azithromycin 500 mg/ Sodium (Chloride) 250 mls @ 167 mls/hr IVPB Q24H [facility] Last Admin: 02/13/17 19:58 Dose: 167 mls/hr Trimethoprim/Sulfamethoxazole (200 mg/ Dextrose) 250 mls @ 166.667 mls/hr IVPB Q12H [facility] Last Admin: 02/13/17 17:00 Dose: 166.667 mls/hr Insulin Aspart (Novolog) 0 unit SC ACHS [facility] PRN Reason: Protocol Last Admin: 02/13/17 21:43 Dose: 3 unit Insulin Glargine (Lantus) 18 unit SC HS [facility] Last Admin: 02/13/17 21:44 Dose: 18 u Metformin HCl (Glucophage) 500 mg PO BIDCC [facility] Last Admin: 02/13/17 18:00 Dose: 500 mg Methylprednisolone (Solu-Medrol) 40 mg IVP Q8 [facility] Last Admin: 02/13/17 21:43 Dose: 40 mg Montelukast Sodium (Singulair) 10 mg PO HS [facility] Last Admin: 02/13/17 21:43 Dose: 10 mg Pantoprazole Sodium (Protonix Inj) 40 mg IVP DAILY [facility] Last Admin: 02/13/17 09:54 Dose: 40 mg Fluticasone/Salmeterol (Advair Diskus 250/50) 1 puff INH RQ12 [facility] Last Admin: 02/13/17 20:20 Dose: 1 puff - Labs Labs: 02/12/17 16:40 02/12/17 20:35 Assessment and Plan (1) Dyspnea Status: Acute (2) Asthma Status: Acute (3) CAD (coronary artery disease) Status: Acute (4) DM2 (diabetes mellitus, type 2) Status: Acute (5) HTN (hypertension) Status: Acute
[2017-02-14] MEDS: Acetylcysteine 20% Inhal Soln (4ml) INH SCH ×3 (01:10→13:16)
[2017-02-14] MEDS: Albuterol-Ipratrop 3 mg / 0.5 (3 ml) UD INH SCH ×3 (01:10→13:15)
[2017-02-14] MEDS: MethylPREDNISolone 40 mg Vial IVP SCH ×2 (05:19→13:48)
[2017-02-14] MEDS: Sulfamethoxazole/Trimethoprim 200 MG in Dextrose 5% In Water 250 ML IVPB SCH (05:40)
[2017-02-14] MEDS: Fluticasone-Salmeterol 250-50mcg Diskus INH SCH (07:58)
[2017-02-14 09:04] LABS: BASO % 0.2 % (0.0-2.0); HEMATOCRIT 33.9 % (34.0-47.0); LYMPH # 0.6 K/uL (1.0-4.3); LYMPH % 6.3 % (20.0-40.0); MEAN CELL VOLUME 91.4 fL (81.0-99.0); MEAN CORPUSCULAR HEMOGLOBIN 30.8 pg (27.0-31.0); MEAN CORPUSCULAR HGB CONC 33.7 g/dL (33.0-37.0); MEAN PLATELET VOLUME 9.4 fL (7.2-11.7); MONO # 0.2 K/uL (0.0-0.8); MONO % 2.2 % (0.0-10.0); PLATELET COUNT 313 K/uL (130-400); RED CELL DISTRIBUTION WIDTH 13.6 % (11.5-14.5); WHITE BLOOD COUNT 9.3 K/uL (4.8-10.8)
[2017-02-14 09:33] LABS: CHLORIDE 93 mmol/L (98-107)
[2017-02-14 09:34] LABS: POTASSIUM 5.2 mmol/L (3.6-5.2); SODIUM 130 mmol/L (132-148)
[2017-02-14 09:37] LABS: BLOOD UREA NITROGEN 18 mg/dL (7-17); CARBON DIOXIDE 27 mmol/L (22-30); GFR AFRICAN-AMERICAN > 60; GLUCOSE,RANDOM 350 mg/dL (65-105); MYELOCYTE 1 % (0-0); TOTAL CELLS COUNTED 100
[2017-02-14 09:38] LABS: CALCIUM 8.5 mg/dl (8.6-10.4); NEUTROPHIL 89 % (50-75)
[2017-02-14] MEDS: (Novolog) Insulin Aspart, Recombinant 100 u/ml 10 ml vial SC SCH ×2 (10:26→13:49)
[2017-02-14] MEDS: Enoxaparin 40 mg Syringe SC SCH (10:27)
[2017-02-14] MEDS: buPROPion 150 mg/24 Hours XL Tab PO SCH (10:27)
--- NOTE | 2017-02-14 13:42 | CP.PCM.PN ---
Subjective - Date & Time of Evaluation Date of Evaluation: 02/14/17 Time of Evaluation: 12:00 - Subjective Subjective: patient seen and examined today , awake alert, ox3. sob improved and less cough , minimal sob upon activity ,denies any chest pain, palpitations, dizziness, abdominal pain ,N/V/D a febrile Objective - Vital Signs/Intake and Output Vital Signs (last 24 hours): Temp Pulse Resp BP Pulse Ox 97.8 F 88 20 127/73 98 02/14/17 08:00 02/14/17 12:00 02/14/17 08:00 02/14/17 10:30 02/14/17 08:00 Intake and Output: 02/14/17 02/14/17 06:59 18:59 Intake Total 900 Balance 900 - Medications Medications: Current Medications Acetylcysteine (Acetylcysteine 20%) 4 ml INH RQ6 [facility] Last Admin: 02/14/17 13:16 Dose: Not Given Albuterol/Ipratropium (Duoneb 3 Mg/0.5 Mg (3 Ml) Ud) 3 ml INH RQ6 [facility] Last Admin: 02/14/17 13:15 Dose: 3 ml Amlodipine Besylate (Norvasc) 5 mg PO DAILY [facility] Last Admin: 02/14/17 10:27 Dose: 5 mg Aspirin (Aspirin Chewable) 81 mg PO DAILY [facility] Last Admin: 02/14/17 10:27 Dose: 81 mg Bupropion HCl (Wellbutrin Xl) 150 mg PO DAILY [facility] Last Admin: 02/14/17 10:27 Dose: 150 mg Carvedilol (Coreg) 12.5 mg PO BID [facility] Last Admin: 02/14/17 10:30 Dose: 12.5 mg Duloxetine HCl (Cymbalta) 60 mg PO DAILY [facility] Last Admin: 02/14/17 10:27 Dose: 60 mg Enoxaparin Sodium (Lovenox) 40 mg SC DAILY [facility] Last Admin: 02/14/17 10:27 Dose: 40 mg Gabapentin (Neurontin) 300 mg PO TID [facility] Last Admin: 02/14/17 10:27 Dose: 300 mg Guaifenesin (Robitussin) 200 mg PO Q4H PRN PRN Reason: Cough and congestion Last Admin: 02/10/17 09:40 Dose: 200 mg Hydroxyzine HCl (Atarax) 50 mg PO BID [facility] Last Admin: 10/10/17 10:28 Dose: 50 mg Azithromycin 500 mg/ Sodium (Chloride) 250 mls @ 167 mls/hr IVPB Q24H [facility] Last Admin: 02/13/17 19:58 Dose: 167 mls/hr Trimethoprim/Sulfamethoxazole (200 mg/ Dextrose) 250 mls @ 166.667 mls/hr IVPB Q12H [facility] Last Admin: 02/14/17 05:40 Dose: 166.667 mls/hr Insulin Aspart (Novolog) 0 unit SC ACHS [facility] PRN Reason: Protocol Last Admin: 02/14/17 10:26 Dose: 8 unit Insulin Glargine (Lantus) 18 unit SC [facility] Last Admin: 02/13/17 21:44 Dose: 18 u Metformin HCl (Glucophage) 500 mg PO BIDCC [facility] Last Admin: 02/14/17 08:53 Dose: 500 mg Methylprednisolone (Solu-Medrol) 40 mg IVP Q8 [facility] Last Admin: 02/14/17 05:19 Dose: 40 mg Montelukast Sodium (Singulair) 10 mg PO [facility] Last Admin: 02/13/17 21:43 Dose: 10 mg Pantoprazole Sodium (Protonix Inj) 40 mg IVP DAILY [facility] Last Admin: 02/14/17 10:27 Dose: 40 mg Fluticasone/Salmeterol (Advair Diskus 250/50) 1 puff INH RQ12 [facility] Last Admin: 02/14/17 07:58 Dose: 1 puff - Labs Labs: 02/14/17 08:50 02/14/17 08:50 - Constitutional Appears: Well, No Acute Distress - Respiratory Exam Respiratory Exam: Decreased Breath Sounds, Rhonchi, NORMAL BREATHING PATTERN - Cardiovascular Exam Cardiovascular Exam: REGULAR RHYTHM, +S1, +S2 - Neurological Exam Neurological Exam: Alert, Awake, Oriented x3 Assessment and Plan - Assessment and Plan (Free Text) Assessment: A/P 61 yr old female admitted for cough, chest tightness, and shortness of breath/ exc. COPD patient de saturates upon activity an d ambulation spo2 -98% on [address] chest - No evidence of pulmonary embolus.Patchy foci of ground-glass opacities associated with interlobular septal thickening, ( crazy paving appearance ). The differential consideration includes pneumonitis, small airway disease, small vessels disease, acute interstitial pneumonia, pulmonary alveolar proteinosis and less likely drug induced pneumonitis and pulmonary hemorrhage. seen by pulmonary oxygen arranged by CM and portable available for the patient for transportation and awaiting for home concentrator seen by Dr. Farrell, cleared for discharge home today and f/u with Dr. Farrell office in [address] Read office in 1-2 weeks Discharge plan discussed with patient who understands and agrees with plan Patient instructed to returns to ED if symptoms get worse
[2017-02-14] MEDS ORDERED: Influenza Vaccine 60 mcg/0.5 mL SYR (4YR UP) IM ONE (14:45)
[2017-02-14 16:38] VITALS: BP 134/77; PULSE 60; TEMP 98.3; O2SAT 96
--- NOTE | 2017-02-14 23:02 | CP.PCM.DIS ---
Provider - Provider Date of Admission: 02/09/17 16:27 Attending physician: Viktor Farrell MD Time Spent in preparation of Discharge (in minutes): 45 Diagnosis - Discharge Diagnosis (1) Dyspnea Status: Acute (2) Asthma Status: Acute (3) CAD (coronary artery disease) Status: Acute (4) DM2 (diabetes mellitus, type 2) Status: Acute (5) HTN (hypertension) Status: Acute Hospital Course - Lab Results Lab Results: Micro Results 02/12/17 08:40 Sputum Gram Stain - Final Most Recent Lab Values WBC 9.3 K/uL (4.8-10.8) 02/14/17 08:50 RBC 3.71 Mil/uL (3.80-5.20) L 02/14/17 08:50 Hgb 11.4 g/dL (11.0-16.0) 02/14/17 08:50 Hct 33.9 % (34.0-47.0) L 02/14/17 08:50 MCV 91.4 fL (81.0-99.0) 02/14/17 08:50 MCH 30.8 pg (27.0-31.0) 02/14/17 08:50 MCHC 33.7 g/dL (33.0-37.0) 02/14/17 08:50 RDW 13.6 % (11.5-14.5) 02/14/17 08:50 Plt Count 313 K/uL (130-400) 02/14/17 08:50 MPV 9.4 fL (7.2-11.7) 02/14/17 08:50 Neut % (Auto) 91.3 % (50.0-75.0) H 02/14/17 08:50 Lymph % (Auto) 6.3 % (20.0-40.0) L 02/14/17 08:50 [place] % (Auto) 2.2 % (0.0-10.0) 02/14/17 08:50 Eos % (Auto) 0.0 % (0.0-4.0) 02/14/17 08:50 Baso % (Auto) 0.2 % (0.0-2.0) 02/14/17 08:50 Neut # 8.5 K/uL (1.8-7.0) H 02/14/17 08:50 Lymph # 0.6 K/uL (1.0-4.3) L 02/14/17 08:50 [place] # 0.2 K/uL (0.0-0.8) 02/14/17 08:50 Eos # 0.0 K/uL (0.0-0.7) 02/14/17 08:50 Baso # 0.0 K/uL (0.0-0.2) 02/14/17 08:50 Neutrophils % (Manual) 89 % (50-75) H 02/14/17 08:50 Band Neutrophils % 1 % (0-2) 02/14/17 08:50 Lymphocytes % (Manual) 8 % (20-40) L 02/14/17 08:50 Monocytes % (Manual) 1 % (0-10) 02/14/17 08:50 Myelocytes % 1 % (0-0) H 02/14/17 08:50 Platelet Estimate Normal (NORMAL) 02/14/17 08:50 Large Platelets Present 02/12/17 16:40 Polychromasia Slight 02/12/17 16:40 Hypochromasia (manual) Slight 02/14/17 08:50 Poikilocytosis (manual Slight 02/14/17 08:50 Basophilic Stippling Slight 02/12/17 16:40 Anisocytosis (manual) Slight 02/14/17 08:50 Target Cells Slight 02/14/17 08:50 Tear Drop Cells Slight 02/14/17 08:50 ESR 78 mm/hr (0-20) H 02/12/17 16:40 Puncture Site Rra 02/12/17 12:58 pCO2 38 mm/Hg (35-45) 02/12/17 12:58 pO2 43 mm/Hg (80-100) L* 02/12/17 12:58 HCO3 27.0 mmol/L (21-28) 02/12/17 12:58 ABG pH 7.46 (7.35-7.45) H 02/12/17 12:58 ABG Total CO2 28.2 mmol/L (22-28) H 02/12/17 12:58 ABG O2 Saturation 83.6 % (95-98) L 02/12/17 12:58 ABG Base Excess 3.1 mmol/L (-2.0-3.0) H 02/12/17 12:58 ABG Hemoglobin 11.5 g/dL (11.7-17.4) L 02/12/17 12:58 ABG Carboxyhemoglobin 2.3 % (0.5-1.5) H 02/12/17 12:58 POC ABG HHb (Measured) 15.7 % (0.0-5.0) H 02/12/17 12:58 ABG Methemoglobin 1.9 % (0.0-3.0) 02/12/17 12:58 Jacob Test Pos 02/12/17 12:58 A-a O2 Difference 59.0 mm/Hg 02/12/17 12:58 Respiratory Index 1.4 02/12/17 12:58 Hgb O2 Saturation 80.1 % (95.0-98.0) L 02/12/17 12:58 Liter Flow 4.0 02/09/17 11:40 FiO2 21.0 % 02/12/17 12:58 Crit Value Called To Jacky patel 02/12/17 12:58 Crit Value Called By Robe noble 02/12/17 12:58 Crit Value Read Back Y 02/12/17 12:58 Blood Gas Notified Time 1304 02/12/17 12:58 Sodium 130 mmol/L (132-148) L 02/14/17 08:50 Potassium 5.2 mmol/L (3.6-5.2) 02/14/17 08:50 Chloride 93 mmol/L (98-107) L 02/14/17 08:50 Carbon Dioxide 27 mmol/L (22-30) 02/14/17 08:50 Anion Gap 16 (10-20) 02/14/17 08:50 BUN 18 mg/dL (7-17) H 02/14/17 08:50 Creatinine 0.6 mg/dL (0.7-1.2) L 02/14/17 08:50 Est GFR ( Amer) > 60 02/14/17 08:50 Est GFR (Non-Af Amer) > 60 02/14/17 08:50 POC Glucose (mg/dL) 232 mg/dL (65-110) H 02/14/17 15:46 Random Glucose 350 mg/dL (65-105) H 02/14/17 08:50 Calcium 8.5 mg/dl (8.6-10.4) L 02/14/17 08:50 Total Bilirubin 0.6 mg/dL (0.2-1.3) 02/12/17 20:35 AST 22 U/L (14-36) 02/12/17 20:35 ALT 45 U/L (9-52) 02/12/17 20:35 Alkaline Phosphatase 87 U/L (38-126) 02/12/17 20:35 Lactate Dehydrogenase 980 U/L (313-618) H 02/12/17 16:40 Troponin I < 0.0120 ng/mL (0.00-0.120) 02/07/17 10:42 C-React Prot High Sens > 15.00 mg/L (1.00-3.00) H 02/12/17 16:40 NT-Pro-B Natriuret Pep 67.6 pg/mL (0-900) 02/07/17 10:42 Total Protein 6.2 g/dL (6.3-8.3) L 02/12/17 20:35 Albumin 3.0 g/dL (3.5-5.0) L D 02/12/17 20:35 Globulin 3.2 gm/dL (2.2-3.9) 02/12/17 20:35 Albumin/Globulin Ratio 1.0 (1.0-2.1) 02/12/17 20:35 HIV 1&2 Antibody Screen Negative (NEGATIVE) 02/12/17 16:40 Influenza Typ A,B (EIA) Negative for flu a/b (NEGATIVE) 02/07/17 10:09 - Hospital Course Hospital Course: A/P 61 yr old female admitted for cough, chest tightness, and shortness of breath/ exc. COPD patient de saturates upon activity an d ambulation spo2 -98% on [address] chest - No evidence of pulmonary embolus.Patchy foci of ground-glass opacities associated with interlobular septal thickening, ( crazy paving appearance ). The differential consideration includes pneumonitis, small airway disease, small vessels disease, acute interstitial pneumonia, pulmonary alveolar proteinosis and less likely drug induced pneumonitis and pulmonary hemorrhage. seen by pulmonary oxygen arranged by CM and portable available for the patient for transportation and awaiting for home concentrator cleared for discharge home today and f/u with office in [address] Read office in 1-2 weeks Discharge plan discussed with patient who understands and agrees with plan Patient instructed to returns to ED if symptoms get worse Discharge Exam - Head Exam Head Exam: ATRAUMATIC, NORMAL INSPECTION, NORMOCEPHALIC - Eye Exam Eye Exam: Normal appearance - ENT Exam ENT Exam: Mucous Membranes Moist - Respiratory Exam Respiratory Exam: Clear to PA & Lateral, NORMAL BREATHING PATTERN - Cardiovascular Exam Cardiovascular Exam: REGULAR RHYTHM, +S1, +S2 - GI/Abdominal Exam GI & Abdominal Exam: Normal Bowel Sounds Discharge Plan - Discharge Medications Prescriptions: Fluticasone/Salmeterol 250/50 [Advair Diskus 250/50] 1 puff INH RQ12 #2 puff Sulfamethoxazole/Trimethoprim [Bactrim DS 800 mg-160 mg] 1 tab PO BID 7 Days tab Albuterol/Ipratropium [Duoneb 3 mg/0.5 mg (3 ml) UD] 3 ml INH RQ6 30 Days neb predniSONE [Prednisone] 40 mg PO DAILY 12 Days tab guaiFENesin [Robitussin] 200 mg PO Q4H PRN #8 oz PRN Reason: Cough And Congestion Montelukast [Singulair] 10 mg PO HS #30 tab - Follow Up Plan Condition: GUARDED Disposition: HOME/ ROUTINE Instructions: Sulfamethoxazole/Trimethoprim (By mouth), Prednisone (By mouth), Guaifenesin (By mouth), Montelukast (By mouth), Dextromethorphan/Guaifenesin/ Phenylephrine (By mouth), Asthma (DC), Heart Healthy Diet (DC), Dyspnea (GEN) Additional Instructions: Please f/u with Dr. Farrell office in 1 week Please f/u with Dr. Read office in 1 wee- call and make appintment use oxygen at home as needed continue medication as per Med. REc . Referrals: Viktor Farrell MD [Staff Provider] - Josh Read MD [Staff Provider] -
== END 2017-02-14 17:18 | disposition home or self-care (01) | DRG 203 ==
LOC: C.ER 09:34 → C.9E 13:51 → C.5S 15:23 → OBSVTOIN 02-09 16:27
PROVIDERS: ADMIT Internal Medicine; ATTEND Internal Medicine
DX: J45.909 Unspecified asthma, uncomplicated (principal); J43.9 Emphysema, unspecified; I10 Essential (primary) hypertension; E11.9 Type 2 diabetes mellitus without complications; F32.9 Major depressive disorder, single episode, unspecified; F17.210 Nicotine dependence, cigarettes, uncomplicated; I25.10 Atherosclerotic heart disease of native coronary artery without angina pectoris; E78.00 Pure hypercholesterolemia, unspecified; Z95.5 Presence of coronary angioplasty implant and graft; M46.90 Unspecified inflammatory spondylopathy, site unspecified; Z79.4 Long term (current) use of insulin